=== PATIENT | male | born 1980 | race Caucasian/White ===

== ENCOUNTER 2016-10-16 16:28 | Emergency (ER) | payer OTHER ==
[2016-10-16 18:57] LABS: HEMOGLOBIN 13.1 gm/dl (14.0-17.5); RED BLOOD COUNT 4.49 M/UL (4.20-5.50); WHITE BLOOD COUNT 14.2 K/UL (4.5-11.0)
[2016-10-16 19:19] LABS: BUN/CREATININE RATIO 11 (0-10)
[2016-10-19] MEDS ORDERED: OMEPRAZOLE20 MG PO (12:17)
[2016-10-19] MEDS ORDERED: LEXAPRO10 MG PO (12:17)
[2016-10-19] MEDS ORDERED: LISINOPRIL10 MG PO (12:18)
[2016-10-19] MEDS ORDERED: IBUPROFEN800 MG PO (12:18)
[2016-10-19] MEDS ORDERED: NORCO 10-325 T1 EACH PO (15:40)
== END 2016-10-16 19:55 | disposition home or self-care (01) ==
LOC: ER1 16:28
PROVIDERS: Student in an Organized Health Care Education/Training Program
DX: S82.302A Unspecified fracture of lower end of left tibia, initial encounter for closed fracture (principal); S82.832A Other fracture of upper and lower end of left fibula, initial encounter for closed fracture; I10 Essential (primary) hypertension; F17.220 Nicotine dependence, chewing tobacco, uncomplicated; Z87.442 Personal history of urinary calculi; W01.0XXA Fall on same level from slipping, tripping and stumbling without subsequent striking against object, initial encounter; Y92.009 Unspecified place in unspecified non-institutional (private) residence as the place of occurrence of the external cause; Z79.899 Other long term (current) drug therapy
CPT/HCPCS: 36415; 73560; 73590; 73610; 80048; 85025; 96372; 99283; J2270

== ENCOUNTER → 2016-10-19 | Day surgery (SDC) | payer OTHER ==
[~2016-10-19] VITALS: Ht 193 cm; Wt 113.4 kg
[~2016-10-19] MED LIST: IBUPROFEN800 MG PO; LEXAPRO10 MG PO; LISINOPRIL10 MG PO; NORCO 10-325 T1 EACH PO; OMEPRAZOLE20 MG PO
[2016-10-19 11:08] LABS: BUN/CREATININE RATIO 13 (0-10)
== END | disposition home or self-care (01) ==
LOC: OR 08:15
PROVIDERS: Orthopaedic Surgery
PROC: 0QSH06Z Reposition Left Tibia with Intramedullary Internal Fixation Device, Open Approach (ICD-10-PCS; principal; 2016-10-19 08:15)
DX: S82.242A Displaced spiral fracture of shaft of left tibia, initial encounter for closed fracture (principal); S82.832A Other fracture of upper and lower end of left fibula, initial encounter for closed fracture; I10 Essential (primary) hypertension; K21.9 Gastro-esophageal reflux disease without esophagitis; F17.290 Nicotine dependence, other tobacco product, uncomplicated; Z79.899 Other long term (current) drug therapy; Z87.442 Personal history of urinary calculi; Z86.69 Personal history of other diseases of the nervous system and sense organs; W19.XXXA Unspecified fall, initial encounter; Y93.01 Activity, walking, marching and hiking
CPT/HCPCS: 71010; 73590; 76000; 80048; C1713; J0690; J1200; J2250; J2405; J2765; J2795; J2930; J3010; J7120